=== PATIENT | male | born 1990 | race Caucasian/White ===

== ENCOUNTER 2024-06-21 18:25 | Emergency (ER) | payer MEDICAID ==
[~2024-06-21] VITALS: Ht 182.9 cm; Wt 78.0 kg
[2024-06-21 18:32] VITALS: BP 105/62; PULSE 87; RESP 16; TEMP 98.5; O2SAT 98
== END 2024-06-21 18:53 | disposition left against medical advice (07) ==
LOC: ER 18:25
DX: R56.9 Unspecified convulsions (principal)
CPT/HCPCS: 99283; Z7610

== ENCOUNTER 2025-02-04 11:12 | Emergency (ER) | payer MEDICAID ==
[~2025-02-04] VITALS: Ht 165.1 cm; Wt 73.0 kg
[2025-02-04 11:18] VITALS: O2SAT 99
[2025-02-04] MEDS: KETOROLAC 30MG/ML VIAL IM ONE (12:37)
[2025-02-04] MEDS: LIDOCAINE 5% PATCH TOP SCH (12:37)
[2025-02-04] MEDS ORDERED: ACET-2708 MT (13:42)
[2025-02-04] MEDS ORDERED: LIDO-53 TP (13:42)
[2025-02-04 14:11] VITALS: BP 122/61; PULSE 88; RESP 17; TEMP 36.4; O2SAT 99
== END 2025-02-04 14:11 | disposition home or self-care (01) ==
LOC: ER 11:12
DX: M54.50 Low back pain, unspecified (principal); Z79.899 Other long term (current) drug therapy
CPT/HCPCS: 99283; 72100; 96372; J1885